=== PATIENT | female | born 1980 | race Caucasian/White ===

== ENCOUNTER 2023-05-18 15:38 | Emergency (ER) | payer OTHER, SELFPAY ==
[2023-05-18 15:51] VITALS: BP 149/83
[2023-05-18 16:26] LABS: % Basophils 0.5 % (0-2); % Eosinophils 0.8 % (0-6); % Immature Granulocytes 0.2 % (0-0.5); % Lymphocytes 29.6 % (20.5-51.1); % Neutrophils 62.9 % (42.2-75.2); Absolute Eosinophils 0.1 10^3/uL (0-0.7); Absolute Lymphocytes 1.8 10^3/uL (1.2-3.4); Absolute Monocytes 0.4 10^3/uL (0.1-0.6); Absolute Neutrophils 3.9 10^3/uL (1.4-6.5); Hematocrit 37.6 % (37.0-47.0); Mean Corp Hgb Conc. 34.6 g/dL (33.0-37.0); Mean Corpuscular Hgb 32.1 pg (27.0-31.0); Mean Corpuscular Volume 92.8 fL (81.0-99.0); Mean Platelet Volume 9.7 fL (7.4-10.4); Nucleated Red Blood Cells % 0 %; Platelet Count 317 10^3/uL (130-400); Red Blood Cell Count 4.05 10^6/uL (4.20-5.40); Red Cell Dist. Width 12.8 % (11.5-14.5); White Blood Cell Count 6.1 10^3/uL (4.8-10.8)
[2023-05-18 16:29] LABS: HCG, Serum Qualitative Screen Negative
[2023-05-18 16:34] LABS: ALT (SGPT) 16 U/L (0-35); AST (SGOT) 22 U/L (14-36); Albumin 4.7 g/dl (3.5-5.0); Alkaline Phosphatase 65 U/L (38-126); Blood Urea Nitrogen 10 mg/dl (7-17); Calcium 9.4 mg/dl (8.4-10.2); Carbon Dioxide 25 mmol/L (22-30); Chloride 104 mmol/L (98-107); Glucose 124 mg/dl (70-99); Potassium 3.5 mmol/L (3.5-5.1); Sodium 138 mmol/L (135-145); Total Bilirubin 0.8 mg/dl (0.2-1.3); Total Protein 7.6 g/dl (6.3-8.2); eGFR > 60.00
--- NOTE | 2023-05-18 17:59 | ED.GENMED ---
History of Present Illness
General
Chief Complaint: Heart Rate Problem
Source: patient
Exam Limitations: none
Time Seen by Provider: 05/18/23 17:29
Nursing documentation reviewed up to this point in time: agreed with
Travel History
Have you had any contact with someone who has COVID-19?: No
Do you have any symptoms of coronavirus? Fever > 100 degrees, chills, cough, shortness of breath, sore throat, loss of taste or smell, muscle aches, or headache?: No
History of Present Illness
History of Present Illness:
pt is a 43 y/o F with h/o anxiet, afib during 6 years ago
having a lot of stress recently
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
has previously been on lexapro but weaned off a few years ago
here with anxiety which started this morning when she woke up
she felt uneasy all day
she htinks becuase she knew she had a long day and would be gone tonight not home to help with her kids. pt was supposed to ref a basketball game tonight
pt worked her day and came home and around 330 pm she started suddenly feeling worse, with high heart rate, then she noticed her apple watch went up to 160
pt then called 911 because she was very scared she was adan to
she had crammping of her hands and feet and was hyperventilating
pt was mildly tachy for ems, hr 101
pt had previously had anxiety and w/u in the ER for elevated HR years ago
she used to be on lexapro
she does have xanax prn but doesn't use it
she has been really overwhelemd recently
after patient delivered her twins and had that very brief afib she was monitored by cards through [facility] for a year and give metoprolol prn but doesn't take it and never had any other events.
Past History
Past History
ED Past Medical History: Arrthythmia (One episode of atrial fibrillation, at onset of labor with twin 36 week gestation, 03/10/2017.)
ED Past Surgical History: (�3)
Social History
Tobacco: Non-smoker
Alcohol: Occasional
Drug: None
Personal:
Living: with family
Family History
Family History: Cancer (Esophageal cancer in father) and Other (GERD)
Review of Systems
Review of Systems
Allergies reviewed?: Yes
All Other Systems: Not applicable
Phy Exam
Physical Exam
Physical Exam:
GENERAL: Alert , anxious
EYE: pupils equal and reactive
NECK: Supple
ENT: o/p clr, mmm.
CARDIAC: Regular rate and rhythm .
LUNGS: Clear breath sounds bilaterally, no acute respiratory distress, no wheezes/rales/rhonchi
ABDOMEN: Soft, without focal tenderness, no r/g, no cvat, normal bowel sounds
NEUROLOGICAL: Alert and oriented, no focal neuro deficits
SKIN: Warm and dry, skin intact.
MUSCULOSKELETAL: No edema, well perfused. neg yeimi's sign
PSYCH:
tearful, anxious
Course
Orders/Labs/Results
Orders:
Orders
05/18/23 15:57
Electrocardiogram (*1) Urgent
Reason for Study: Tachycardia
EKG- Treatment ONCE
Test Result ONCE
05/18/23 16:07
Complete Blood Count/With Diff Urgent
Comprehensive Metabolic Panel Urgent
HCG, Serum Qualitative Screen Urgent
TSH Reflex To Free T4 Urgent
Comment: ADD ON
05/18/23 17:53
Add On- LAB Urgent
Tests Added?: tsh reflex t4
Lorazepam [Ativan] 1 mg IV NOW STA
05/18/23 17:54
CR Chest - 2 Views Urgent
Comment:
Reason For Exam: elevated HR, anxious
05/18/23 18:13
D-Dimer Urgent
Abnormal Lab Results
05/18/23
16:07
RBC 4.05 L 10^6/uL
(4.20-5.40)
MCH 32.1 H pg
(27.0-31.0)
Glucose 124 H mg/dl
(70-99)
05/18/23 16:07
05/18/23 16:07
Vital Signs
Initial and Last Documented VS:
Initial Vital Signs
Temp Pulse Resp BP Pulse Ox
98.2 F 97 18 149/83 98
05/18/23 15:51 05/18/23 15:51 05/18/23 15:51 05/18/23 15:51 05/18/23 15:51
Last Documented Vital Signs
Temp Pulse Resp BP Pulse Ox
98.2 F 71 11 149/83 95
05/18/23 15:51 05/18/23 18:15 05/18/23 18:15 05/18/23 15:51 05/18/23 18:15
MDM/Problems Addressed
Differential Diagnosis Includes:
tachycardia, anxiety, pe, afib
MDM/Problems Addressed:
43 y/o F with h/o anxiety and PAF during
here with sob and sudden elevation of HR to 160 at home today when she was feeling anxious
pt says she has had a lot of stressors recently
called 911 becuase her apple watch showed her that her HR was 160
she has resting HR of 50s usually and exercises regularly
she had some sob with the tachycardia but otherwise just feels anxious
no chest pain, pleuritic pain, leg swelling, hormone therapy, h/o dvt/pe
no fhx of cad
pt is not followed by cards now
she is anxious appearing, tearful when talking about stressors
exam otherwise benign
her HR is 80s now
ekg was sinus rhythm with sinus arrhythmia, no ischemia
labs show normal electrolytes
will add on tsh
d dimer
will give dose of ativan for her anxiety
likely d/c and f/u with crads for holter.
TSH and D-dimer normal. Patient feels much better after Ativan. Discharge home
*Critical Care Note
Total Time (30-74mins, 75-104mins- exclusive of procedures): Not Applicable
ED Attending Note
-
Portions of this chart may have been created with voice recognition software.� Occasional wrong word or��sound alike� substitutions may have occurred due to the inherent limitations of voice recognition software.
Discharge Plan
Departure
Patient Disposition: Home (Routine Discharge)
Date of Disposition: 05/18/23
Time of Disposition: 19:06
Patient with high blood pressure during this ER visit?: No
Condition: Fair
Covid-19: Not Applicable
Discharge Problem:
Anxiety, Tachycardia
Instructions: Palpitations (DC), BLOOD PRESSURE
Prescriptions:
No Action
No Current Medications
0
Referrals:
Ray Ojeda MD [Family Provider] -
Skye Talavera DO [Active] - Follow up in 5-7 days (cardiology)
Activity Restrictions/Additional Instructions:
YOUR WORK UP HERE WAS REASSURING
YOU HAD NO SIGN OF ABNORMAL RHYTHM WHILE ON THE MONITOR
YOUR BLOOD WORK WAS UNREMARKABLE
PLEASE CALL MEASURER OFFICE AND TELL THEM THAT YOU WERE SEEN IN THE ER, THEY CAN GET YOU SET UP WITH A MONITOR TO WEAR TO MAKE SURE YOU AREN'T HAVING ABNORMAL RHYTHMS
IN THE MEANTIME, IF YOU HAVE TO USE THE XANAX IN TIMES OF SEVERE ANXIETY, YOU CAN
FOLLOW UP WITH YOUR DOCTOR, YOU MAY WANT TO CONSIDER STARTING MEDICATION FOR ANXIETY WHILE YOU ARE UNDER THIS MUCH STRESS
RETURN FOR: PASSING OUT, RECURRENT ATRIAL FIBRILLATION, SEVERE PALPITATIONS ORANY CONCERNS.
Interventions
Interventions:
*Risk Screen - Suicide Last Done: 05/18/23 15:51
*General Assessment Last Done: 05/18/23 15:51
*Neglect/Abuse Screening Last Done: 05/18/23 15:51
ED- Fall Risk Assessment Last Done: 05/18/23 17:44
*Nursing Disposition Last Done: 05/18/23 19:33
ED- Cardiac Assessment Last Done: 05/18/23 17:44
ED- Pulmonary Assessment Last Done: 05/18/23 17:44
Discharge Date and Time
Discharge Date/Time: 05/18/23 19:34
[2023-05-18] MEDS: ATIVAN 1 MG IV (18:37)
[2023-05-18 18:59] LABS: D-Dimer < 0.27 ug/mlFEU (0.00-0.50)
[2023-05-18 18:59] LABS: TSH Reflex To Free T4 1.36 uIU/ml (0.47-4.68)
== END 2023-05-18 19:34 | disposition home or self-care (01) ==
LOC: EMR 15:38
PROVIDERS: Physician Assistant; EMERGENCY PHYSICIAN Emergency Medicine; FAMILY PHYSICIAN Student in an Organized Health Care Education/Training Program
DX: F41.9 Anxiety disorder, unspecified (principal); R00.0 Tachycardia, unspecified; I48.91 Unspecified atrial fibrillation; Z83.79 Family history of other diseases of the digestive system
CPT/HCPCS: 99283; 71046; 80053; 84443; 84703; 85025; 85379; 93005